=== PATIENT | male | born 1940 | race Caucasian/White ===

== ENCOUNTER 2021-05-04 17:54 | Emergency (ER) | payer OTHER ==
[~2021-05-04] VITALS: Ht 165.1 cm; Wt 78.9 kg
[2021-05-04] MEDS ORDERED: COZAAR50 MG PO (18:07)
[2021-05-04] MEDS ORDERED: ZOLOFT50 MG PO (18:07)
[2021-05-04] MEDS ORDERED: ELIQUIS2.5 MG PO (18:08)
== END 2021-05-05 22:02 | disposition home or self-care (01) ==
LOC: ER 17:54
DX: G89.18 Other acute postprocedural pain (principal); R10.84 Generalized abdominal pain; K91.841 Postprocedural hemorrhage of a digestive system organ or structure following other procedure; Y83.8 Other surgical procedures as the cause of abnormal reaction of the patient, or of later complication, without mention of misadventure at the time of the procedure